=== PATIENT | male | born 1950 | race Caucasian/White ===

== ENCOUNTER 2018-12-30 09:10 | Observation (INO) ==
[2018-12-30] MEDS ORDERED: SODIUM CHLORIDE 0.9% 1000ML 1,000 ML IV ONE (09:35)
[2018-12-30 09:52] LABS: Basophils # (auto) 0.05 K/uL (0-0.2); Basophils % (auto) 0.4 %; Eosinophils # (auto) 0.25 K/uL (0-0.5); Eosinophils % (auto) 2.1 %; Hematocrit (blood only) 40.6 % (42-52); Hemoglobin 13.3 g/dL (14.0-18.0); Immature Granulocytes # (auto) 0.03 K/uL (0.00-0.02); Immature Granulocytes % (auto) 0.3 %; Lymphocytes # (auto) 3.42 K/uL (1.2-3.4); Lymphocytes % (auto) 28.7 %; Mean Corpuscular Hgb Conc 32.8 g/dL (32-36); Mean Corpuscular Volume 87.7 fL (80-100); Mean Platelet Volume 10.6 fL (7.4-10.4); Monocytes % (auto) 7.6 %; Neutrophils # (auto) 7.26 K/uL (1.4-6.5); Neutrophils % (auto) 60.9 %; Platelet Count 323 K/uL (130-400); RDW Coefficient of Variation 13.5 % (11.5-14.5); RDW Standard Deviation 42.9 fL (36.4-46.3); Red Blood Count 4.63 M/uL (4.7-6.1); White Blood Count 11.91 K/uL (4.8-10.8)
[2018-12-30 09:58] LABS: Albumin Level 3.6 gm/dl (3.4-5.0); BUN Creatinine Ratio 15.8 (10-20); Calcium 9.1 mg/dl (8.5-10.1); Creatinine Clr Calc Pharmacy 79.2 ml/min; Est GFR (Non-African American) 69.9; Magnesium 2.1 mg/dl (1.8-2.4); Potassium 3.7 mmol/L (3.5-5.1)
[2018-12-30 10:06] LABS: Bilirubin,Total 0.5 mg/dl (0.2-1); Globulin 3.5 gm/dl (2.5-4.0); Phosphorus 3.4 mg/dl (2.5-4.9); Total Protein 7.1 gm/dl (6.4-8.2); Troponin I 0.046 ng/ml (0-0.045)
--- NOTE | 2018-12-30 10:09 | XRay Report ---
XR chest 1V portable CLINICAL HISTORY: Atypical chest pain COMPARISON STUDY: No previous studies for comparison. FINDINGS: The heart is at the upper limits of normal in size. Mild emphysema is suspected. There is n o overt failure. There is no focal pulmonary consolidation. There is minimal blunting of the left lat eral costophrenic angle a trace effusion cannot be excluded.[ IMPRESSION: 1. Equivocal trace left pleural effusion 2. No evidence of focal pulmonary consolidation. No evidence of failure. Electronically signed by: Juan Dykes M.D. 12/30/2018 10:08 AM
--- NOTE | 2018-12-30 12:54 | History & Physical Report ---
Date of Service December 30, 2018 Assessment & Plan (1) Near syncope: Suspect vagal response related to blood draw since patient has a history of similar symptoms in the past. However, with positive troponin pt will need to be admitted for additional labs and monitoring - Monitor on telemetry - Serial troponins - Repeat EKG prn chest pain - Hold off on repeat ECHO for now - results from Nov reviewed. If troponins trend up, may need to consider repeat ECHO at that time. (2) Elevated troponin: Minimally elevated troponin found upon work-up for near-syncope - unclear if significant - Check troponin Q6 hours x 3 - if progressive elevation and needs cardiac cath, plan to transfer to [place] - Repeat EKG if develops any chest pain (3) Aortic valve stenosis: (4) COPD (chronic obstructive pulmonary disease): Current smoker with no interest in quitting at this time - declines nicotine patch - Continue Symbicort for maintenance, prn Combivent (5) Type 2 diabetes mellitus: Holding oral hypoglycemics and cinnamon bark while admitted, particularly Metformin in anticipation of potential CTA tomorrow - Diabetic heart healthy diet - BSG ACHS - Sliding scale insulin (6) Dyslipidemia: - Continue atorvastatin 40 mg daily (7) HTN (hypertension): - Continue losartan and HCTZ as taken outpatient - pt reports being hypotensive during episode but BP now mildly elevated (8) S/P cataract surgery: s/p left cataract surgery 12/28/18 - Continue drops as prescribed outpatient for post-operative care - No acute visual changes at this time - no need for ophthalmolgoy evaluation unless acute change Patient reviewed with collaborating physician, Dr. Shah. Plan of care discussed and as outlined above. Pt was scheduled to have surveillance CTA tomorrow at [place] - if negative w/u, may be able to discharge in time for now this study. If not able to discharge tomorrow, may consider ordering as inpatient. Family updated at bedside - all questions answered. Almita Turner PA-C History of Present Illness Primary Care Provider: PCP - Lm Moreland This is a 68 y/o male with a past medical history of severe aortic stenosis, type 2 DM, COPD, hypertension, dyslipidemia who presented to the ED today after an episode of near-syncope while having routine labs drawn at the NH. Pt has a history of severe aortic stenosis and is being evaluated for valve replacement. While having routine pre-operative labs drawn today, he reports the tech had difficulty drawing blood at which point he became lightheaded and diaphoretic with "cloudy thinking" but no loss of consciousness. He reports being aware of what was going on around him and able to respond although he chose to simply close his eyes and "try to get it together." In the ED, he is feeling markedly improved, actually back to baseline, but was found to have a minimally positive troponin so referred for admission for additional work-up. The ED did discuss potential transfer to [place], where he is being worked up for surgery, but it was felt that patient could be monitored initially here and transferred only if needed. Pt denies chest pain, palpitations, nausea, vomiting, dyspnea, RAMIREZ or residual lightheadedness. He has had similar episodes with blood draws previously. He is scheduled for a surveillance CTA chest tomorrow due to history of aortic enlargement that family reports must be completed prior to pre-op cardiac cath which is scheduled for January 10 in [place]. Last ECHO in Nov 2018 showed EF 50-55%, severe valvular aortic stenosis with moderate aortic valve thickening, mild AR, trace TR/MR, mildly dilated left atrium. Allergies Allergy/AdvReac Type Severity Reaction Status Date / Time Penicillins Allergy Hives Unverified 12/30/18 10:13 Home Medications Home Medications Medication Instructions Recorded Confirmed Type Combivent Respimat 1 puff INHALATION UD PRN 12/30/18 12/30/18 History Symbicort 1 puff INHALATION UD 12/30/18 12/30/18 History aspirin [Aspirin Childrens] 81 mg PO DAILY 12/30/18 12/30/18 History atorvastatin 40 mg PO DAILY 12/30/18 12/30/18 History cinnamon bark [Cinnamon] 500 mg PO DAILY 12/30/18 12/30/18 History flaxseed oil 1,000 mg PO DAILY 12/30/18 12/30/18 History garlic 1,000 mg PO DAILY 12/30/18 12/30/18 History glipizide 5 mg PO BID 12/30/18 12/30/18 History hydrochlorothiazide 25 mg PO DAILY 12/30/18 12/30/18 History [id number] 1 cap PO DAILY 12/30/18 12/30/18 History [krill oil] losartan 100 mg PO DAILY 12/30/18 12/30/18 History metformin 1,000 mg PO BID 12/30/18 12/30/18 History ofloxacin 1 drp OPL QID 12/30/18 12/30/18 History prednisolone acetate 1 drp OPB QID 12/30/18 12/30/18 History Past Med/Surg History Medical History Aortic valve stenosis (Chronic) Severe - being worked up for valvular replacement December 2018 COPD (chronic obstructive pulmonary disease) (Chronic) Dyslipidemia (Chronic) HTN (hypertension) (Chronic) Type 2 diabetes mellitus (Chronic) Surgical History Hx of cataract surgery (Chronic) Right 12/14/18. Left 12/28/18 Family History Brother Cancer Father Cancer Mother Cancer Diabetes Thyroid condition Uncle Heart disease Social History Preferred Language: Cypriot Beliefs That Will Affect Care: None marital status: Current Living Situation: Spouse current occupational status: retired Other Information That Helps Us Care for You: No Feels Safe at Home: Yes Safety Concerns: Feels Safe At This Time Smoking Status: Current every day smoker Hx Alcohol Use: Yes Hx Substance Use: No Review of Systems All systems reviewed & are unremarkable except as noted in HPI & below Constitutional: no fever, no chills, no sweats, no fatigue and no weakness Eyes: no diplopia and no worsening vision Ear, Nose, Mouth, Throat: no sore throat and no dysphagia Respiratory: no cough, no chest congestion, no dyspnea on exertion and no wheezing Cardiovascular: + lightheadedness (see HPI); no chest pain with activity, no radiating jaw, neck or arm pain, no dyspnea on exertion, no palpitations, no edema and no calf pain Gastrointestinal: no heartburn, no nausea, no vomiting, no diarrhea/loose stools and no blood in stools Genitourinary (Male): no dysuria, no urinary frequency, no decreased urination, no hematuria and no flank pain Musculoskeletal: no back pain and no neck pain Integumentary: no rash and no skin ulcer Neurologic: no localized weakness, no tingling, no numbness, no seizure-like activity and no headache(s) Psychiatric: no depression, no anxiety, no confusion and no hallucinations Physical Exam Vital Signs (Past 24 Hours): Last Vital Signs Temp 36.7 C 12/30/18 09:04 Pulse 71 12/30/18 12:28 Resp 23 12/30/18 12:28 BP 139/74 12/30/18 12:28 Pulse Ox 95 12/30/18 12:28 Constitutional: WD/WN, vitals as above Eyes: PERRL, conjunctivae normal, anicteric sclerae EOM intact bilaterally ENMT: external ear and nose normal, oropharynx normal Neck: trachea midline Respiratory: normal respiratory effort, lungs clear to auscultation Auscultation: no rales, no rhonchi and no wheezes Cardiovascular: Rate/Rhythm: regular rate and regular rhythm Heart Sounds: + murmur (III/ systolic murmur heard best at RUSB with radiation to right carotid) Vessels: no JVD Extremities: normal capillary refill; no calf tenderness and no pedal edema Gastrointestinal (Abdomen): Inspection/Auscultation: normal bowel sounds; abdomen not distended Percussion/Palpation: abdomen soft; abdomen nontender and no guarding Musculoskeletal: Extremities: extremities normal to inspection; no cyanosis Skin: no rashes, warm and dry normal turgor Neurologic: moves all extremities; no focal motor deficits and not confused Cranial Nerves: EOM intact bilaterally, tongue midline and able to rotate head bilaterally Psychiatric: A+Ox3, euthymic affect Results & Data Laboratory Results Laboratory Results - last 24 hr 12/30/18 12/30/18 08:56 08:56 WBC 11.91 H RBC 4.63 L Hgb 13.3 L Hct 40.6 L MCV 87.7 MCH 28.7 MCHC 32.8 RDW Std Deviation 42.9 RDW Coeff of Keven 13.5 Plt Count 323 MPV 10.6 H Immature Gran % (Auto) 0.3 Neut % (Auto) 60.9 Lymph % (Auto) 28.7 Sweet [place] % (Auto) 7.6 Eos % (Auto) 2.1 Baso % (Auto) 0.4 Immature Gran # (Auto) 0.03 H Neut # (Auto) 7.26 H Lymph # (Auto) 3.42 H Sweet Grass # (Auto) 0.90 H Eos # (Auto) 0.25 Baso # (Auto) 0.05 Sodium 139 Potassium 3.7 Chloride 105 Carbon Dioxide 29 Anion Gap 5.0 BUN 17 Creatinine 1.09 Est Cr Clr Drug Dosing 79.2 Est GFR ( Amer) 81.0 Est GFR (Non-Af Amer) 69.9 BUN/Creatinine Ratio 15.8 Glucose 123 H Calcium 9.1 Phosphorus 3.4 Magnesium 2.1 Total Bilirubin 0.5 AST 24 ALT 39 Alkaline Phosphatase 55 Troponin I 0.046 H* Total Protein 7.1 Albumin 3.6 Globulin 3.5 Albumin/Globulin Ratio 1.0 Lipase 220 Diagnostic Findings Chest X-ray 12/30/18 - IMPRESSION: 1. Equivocal trace left pleural effusion 2. No evidence of focal pulmonary consolidation. No evidence of failure. Medications Administered Discontinued Medications Sodium Chloride (Nss 1000ml) 1,000 mls @ 999 mls/hr IV .Q1H1M ONE Stop: 12/30/18 10:35 Last Infusion: 12/30/18 11:23 Dose: 0 mls/hr Documented by: [id number] Admin: 12/30/18 10:29 Dose: 999 mls/hr Documented by: [id number] Supervising Physician Co-Signing Physician Notes Pt was seen and examined. Agreed with Kim DEGROOT exam, assessment and plan. 68 y/o male with a past medical history of severe aortic stenosis, type 2 DM, COPD, hypertension, dyslipidemia who presented to the ED today after an episode of near-syncope while having routine labs drawn at the NH. Pt said that he had multiple episodes in the past related to blood draw or by seeing blood. Currently he denies any chest pain, palpitation, dizziness and SOB. Exam General- No acute distress Head- atraumatic Eyes- PERRL, EOMI, ENT- oropharynx clear Neck- supple, no JVD Lungs- clear to auscultation Heart- regular rhythm; +systolic murmur Abdomen- normal bowel sounds, soft, nontender Extremities- no calf tenderness Neuro- alert, oriented x 3; PERRL, EOMI; no facial palsy; no dysarthria Skin- warm & dry A/P Near syncope Elevated Troponin Present on admission for near syncope during blood draw Mostly vaso vagal response related to blood draw Multiple episodes in the past related to blood draw or by seeing blood Will trend troponin level EKG showed no ischemic changes Denies any cardiac symptoms Continue aspirin for now Echo done on 11/22 showed no wall motion abnormality with EF 50-55% If trop peak, will consider to repeat echo Monitor in tele Please refer to Kim DEGROOT documentation for other problems MD Alyssa (1) Type 2 diabetes mellitus Diabetes mellitus intermediate project manager insulin use: without intermediate project manager use (2) Aortic valve stenosis Cardiac valve disease etiology: nonrheumatic Qualified Code(s): I35.0 - Nonrheumatic aortic (valve) stenosis (3) S/P cataract surgery Laterality: left Qualified Code(s): Z98.42 - Cataract extraction status, left eye (4) COPD (chronic obstructive pulmonary disease) COPD type: unspecified COPD Qualified Code(s): J44.9 - Chronic obstructive pulmonary disease, unspecified (5) HTN (hypertension) Hypertension type: essential hypertension Qualified Code(s): I10 - Essential (primary) hypertension
[2018-12-30] MEDS ORDERED: GLUCOSE 40% GEL 15 GM TUBE PO PRN (16:25)
[2018-12-30] MEDS ORDERED: CARBOHYDRATES FOR HYPOGLYCEMIA PO PRN (16:25)
[2018-12-30] MEDS ORDERED: GLUCOSE 10 TABS/TUBE PO PRN (16:25)
[2018-12-30] MEDS ORDERED: DEXTROSE 50% 50 ML SYRINGE IV PRN (16:25)
[2018-12-30] MEDS ORDERED: IPRATROPIUM BROMIDE/ALBUTEROL respimat INH INH PRN (16:25)
[2018-12-30] MEDS ORDERED: GLUCAGON FOR INJ 1 MG VIAL SQ PRN (16:25)
[2018-12-30] MEDS: INSULIN ASPART 100 UNITS/ML 3 ML PEN SC SCH ×2 (17:57→20:43)
[2018-12-30] MEDS: OFLOXACIN 0.3% OP SOLN 5 ML BTL OPL SCH ×2 (17:59→20:59)
[2018-12-30] MEDS: prednisoLONE acetate 1% OP SUSP 5 ML BTL OPB SCH ×2 (17:59→20:59)
[2018-12-30] MEDS ORDERED: Nursing to Pharmacy Communication ONE (21:53)
--- NOTE | 2018-12-30 22:20 | Emergency Department Note ---
Entered by Zoe Greer acting as a scribe for History of Present Illness General Chief complaint: Syncope Stated complaint: syncope Time Seen by Provider: 12/30/18 09:34 Source: patient History of Present Illness Onset (ago): minute(s) (prior to arrival) Location: head Pain Consistency: + other (episode) Quality: + other (syncope) Associated symptoms: + denies other symptoms (congestion); no chest pain, no cough, no fever/chills and no shortness of breath The patient is a 68 year old male who presents to the Emergency Room with complaints of an episode of near syncope occurring prior to arrival. The patient states that he was fasting for blood work this morning. He states that he had only taken his medications this morning. He reports that when he was starting to give blood, he started to feel like he was going to pass out. He notes that this was scheduled blood work. The patient denies cough, congestion, fever, chills, chest pain, and shortness of breath. He notes that he takes an Aspirin daily and smokes just less than a pack of cigarettes a day. Home Medications Home Medications Medication Instructions Recorded Confirmed Type aspirin [Aspirin Childrens] 81 mg PO DAILY 12/30/18 12/30/18 History atorvastatin 40 mg PO DAILY 12/30/18 12/30/18 History budesonide-formoterol [Symbicort] 1 puff INHALATION UD 12/30/18 12/30/18 History cinnamon bark [Cinnamon] 500 mg PO DAILY 12/30/18 12/30/18 History flaxseed oil 1,000 mg PO DAILY 12/30/18 12/30/18 History garlic 1,000 mg PO DAILY 12/30/18 12/30/18 History glipizide 5 mg PO BID 12/30/18 12/30/18 History hydrochlorothiazide 25 mg PO DAILY 12/30/18 12/30/18 History ipratropium-albuterol [Combivent 1 puff INHALATION UD PRN 12/30/18 12/30/18 History Respimat] [id number] 1 cap PO DAILY 12/30/18 12/30/18 History [krill oil] losartan 100 mg PO DAILY 12/30/18 12/30/18 History metformin 1,000 mg PO BID 12/30/18 12/30/18 History ofloxacin 1 drp OPL QID 12/30/18 12/30/18 History prednisolone acetate 1 drp OPB QID 12/30/18 12/30/18 History Allergies Allergy/AdvReac Type Severity Reaction Status Date / Time Penicillins Allergy Hives Unverified 12/30/18 10:13 Past Med/Surg History Medical History Aortic valve stenosis (Chronic) Severe - being worked up for valvular replacement December 2018 COPD (chronic obstructive pulmonary disease) (Chronic) Dyslipidemia (Chronic) HTN (hypertension) (Chronic) Type 2 diabetes mellitus (Chronic) Surgical History Hx of cataract surgery (Chronic) Right 12/14/18. 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 and A total of 10 systems reviewed and were otherwise negative Physical Exam Vital Signs Vital Signs - 24 hr 12/30/18 09:04 12/30/18 09:32 12/30/18 10:00 Temperature 36.7 C Temperature Source Oral Sepsis Recent Fever Within 48 Hours No Sepsis New/Unexplained Change in Mental Status No Sepsis Action Taken by Nursing No Action Required Pulse Rate 72 Pulse Rate [Left Finger] Pulse Rate from SpO2 Sensor 80 Pulse Rhythm [Left Finger] Pulse Strength [Left Finger] Respiratory Rate 20 19 Respiratory Effort / Characteristics Respiratory Depth Normal Respiratory Pattern Blood Pressure 132/77 117/74 Blood Pressure [Left Arm] Blood Pressure [Right Arm] Blood Pressure Mean 95 88 Blood Pressure Mean [Left Arm] Blood Pressure Mean [Right Arm] Blood Pressure Position [Left Arm] Blood Pressure Position [Right Arm] Pulse Oximetry 96 95 94 Oxygen Delivery Method Room Air Room Air 12/30/18 11:24 12/30/18 12:28 12/30/18 13:00 Temperature Temperature Source Sepsis Recent Fever Within 48 Hours Sepsis New/Unexplained Change in Mental Status Sepsis Action Taken by Nursing Pulse Rate Pulse Rate [Left Finger] 71 71 72 Pulse Rate from SpO2 Sensor Pulse Rhythm [Left Finger] Regular Pulse Strength [Left Finger] Respiratory Rate 20 23 18 Respiratory Effort / Characteristics Non-Labored Non-Labored Respiratory Depth Normal Normal Respiratory Pattern Regular Regular Blood Pressure Blood Pressure [Left Arm] 129/77 139/74 110/79 Blood Pressure [Right Arm] Blood Pressure Mean Blood Pressure Mean [Left Arm] 94 95 89 Blood Pressure Mean [Right Arm] Blood Pressure Position [Left Arm] Blood Pressure Position [Right Arm] Pulse Oximetry 95 95 95 Oxygen Delivery Method Room Air Room Air Room Air 12/30/18 14:00 12/30/18 15:30 12/30/18 15:48 Temperature Temperature Source Sepsis Recent Fever Within 48 Hours Sepsis New/Unexplained Change in Mental Status Sepsis Action Taken by Nursing Pulse Rate 72 Pulse Rate [Left Finger] 76 76 Pulse Rate from SpO2 Sensor Pulse Rhythm [Left Finger] Pulse Strength [Left Finger] Respiratory Rate 25 H 15 15 Respiratory Effort / Characteristics Non-Labored Non-Labored Respiratory Depth Normal Normal Respiratory Pattern Regular Regular Blood Pressure Blood Pressure [Left Arm] 142/78 H 145/88 H Blood Pressure [Right Arm] Blood Pressure Mean Blood Pressure Mean [Left Arm] 99 107 Blood Pressure Mean [Right Arm] Blood Pressure Position [Left Arm] Blood Pressure Position [Right Arm] Pulse Oximetry 95 95 95 Oxygen Delivery Method Room Air Room Air Room Air 12/30/18 16:00 12/30/18 16:46 12/30/18 19:01 Temperature 36.7 C 36.8 C Temperature Source Oral Oral Sepsis Recent Fever Within 48 Hours Sepsis New/Unexplained Change in Mental Status Sepsis Action Taken by Nursing Pulse Rate Pulse Rate [Left Finger] 81 80 83 Pulse Rate from SpO2 Sensor Pulse Rhythm [Left Finger] Regular Pulse Strength [Left Finger] Normal Respiratory Rate 18 20 Respiratory Effort / Characteristics Non-Labored Spontaneous Non-Labored Respiratory Depth Normal Normal Respiratory Pattern Regular Regular Blood Pressure Blood Pressure [Left Arm] 173/106 H 149/82 H Blood Pressure [Right Arm] 164/85 H Blood Pressure Mean Blood Pressure Mean [Left Arm] 128 104 Blood Pressure Mean [Right Arm] 111 Blood Pressure Position [Left Arm] Sitting Lying Blood Pressure Position [Right Arm] Sitting Pulse Oximetry 92 93 Oxygen Delivery Method Room Air Room Air GENERAL: Awake, alert, fatigued-appearing, in no distress HENT: Normocephalic, atraumatic. Oropharynx with dry mucous membranes and otherwise unremarkable. EYES: Normal conjunctiva. Sclera non-icteric. EOMI. No nystamgus. PEARRL. NECK: Supple. No nuchal rigidity. FROM. No JVD. RESPIRATORY: Scant intermittent wheezes otherwise CTAB. CARDIAC: Regular rate, normal rhythm. 2/6 systolic murmur. Extremities warm and well perfused. Pulses equal. ABDOMEN: Soft, non-distended. No tenderness to palpation. No rebound or guarding. No masses. RECTAL: Deferred. MUSCULOSKELETAL: Chest examination reveals no tenderness. The back is symmetrical on inspection without obvious abnormality. There is no CVA tenderness to palpation. No joint edema. LOWER EXTREMITIES: Calves are equal size bilaterally and non-tender. No edema. No discoloration. NEURO: Normal sensorium. No sensory or motor deficits noted. Normal cerebellar function including finger to nose, alternating palms, and heel to diaz. 5/5 strength and SILT x 4 extremities. SKIN: No rash or jaundice noted. Course 0948: Past medical records reviewed. The patient was evaluated in room C5, and a complete history and physical examination were performed. 1125: I reevaluated the patient and updated him on his test results thus far. He made note that he is supposed to go to the [facility] in [place] if he is going to stay overnight. 1141: [facility] He said the patient was getting a CT scan tomorrow at [place] to assess his aorta. He has a history of aortic enlargement. His heart catheterization is scheduled for January 10. 1151: [facility] will evaluate the patient for further management. 1157: I reevaluated the patient and updated him and his family on his test results. I discussed the treatment plan with them. They verbally agree and understand. Consultations Consultation #1: [facility] He said the patient was getting a CT scan tomorrow at [place] to assess his aorta. He has a history of aortic enlargement. His heart catheterization is scheduled for January 10. Time: 11:41 Consultation #2: I reviewed the patient's case with Kim Turner PA-C - [facility] Hospitalist. She will evaluate the patient for further management. Time: 11:51 Administered Medications Insulin Aspart (Novolog Flexpen) 0 units SC ACHS [facility] Stop: 01/29/19 16:29 Last Admin: 12/30/18 20:43 Dose: Not Given Documented by: [id number] Cosigned by: [id number] Admin: 12/30/18 17:57 Dose: 5 units Documented by: [id number] Cosigned by: [id number] Ofloxacin (Ocuflox 0.3%) 1 drops OPL QID [facility] Stop: 01/09/19 16:59 Last Admin: 12/30/18 20:59 Dose: 1 drops Documented by: [id number] Admin: 12/30/18 17:59 Dose: 1 drops Documented by: [id number] Prednisolone Acetate (Pred Forte 1%) 1 drops OPB QID [facility] Stop: 01/29/19 16:59 Last Admin: 12/30/18 20:59 Dose: 1 drops Documented by: [id number] Admin: 12/30/18 17:59 Dose: 1 drops Documented by: [id number] Discontinued Medications Sodium Chloride (Nss 1000ml) 1,000 mls @ 999 mls/hr IV .Q1H1M ONE Stop: 12/30/18 10:35 Last Infusion: 12/30/18 11:23 Dose: 0 mls/hr Documented by: [id number] Admin: 12/30/18 10:29 Dose: 999 mls/hr Documented by: [id number] Medical Decision Making Differential Diagnosis Differential diagnosis: Etiologies such as vasovagal event, infection, anemia, hypoglycemia, hypovolemia, electrolyte abnormalities, dysrhythmias, cardiac ischemia, cardiac tamponade, valvular heart disease, structural heart disease, seizure, vascular stenosis/dissection, pulmonary embolism, intracerebral event, toxicological process, neurologic event, as well as others were entertained. Medical Records Attestation: I reviewed the patient's medical records. Home Medications Current Medication List: was personally reviewed by me Laboratory Data Attestation: I reviewed the patient's lab results. Result diagrams: 12/30/18 08:56 12/30/18 08:56 Lab Results 12/30/18 12/30/18 12/30/18 Range/Units 08:56 08:56 16:31 WBC 11.91 H (4.8-10.8) K/uL RBC 4.63 L (4.7-6.1) M/uL Hgb 13.3 L (14.0-18.0) g/dL Hct 40.6 L (42-52) % MCV 87.7 (80-100) fL MCH 28.7 (25-34) pg MCHC 32.8 (32-36) g/dL RDW Std Deviation 42.9 (36.4-46.3) fL RDW Coeff of Keven 13.5 (11.5-14.5) % Plt Count 323 (130-400) K/uL MPV 10.6 H (7.4-10.4) fL Immature Gran % (Auto) 0.3 % Neut % (Auto) 60.9 % Lymph % (Auto) 28.7 % Love % (Auto) 7.6 % Eos % (Auto) 2.1 % Baso % (Auto) 0.4 % Immature Gran # (Auto) 0.03 H (0.00-0.02) K/uL Neut # (Auto) 7.26 H (1.4-6.5) K/uL Lymph # (Auto) 3.42 H (1.2-3.4) K/uL Love # (Auto) 0.90 H (0.11-0.59) K/uL Eos # (Auto) 0.25 (0-0.5) K/uL Baso # (Auto) 0.05 (0-0.2) K/uL Sodium 139 (136-145) mmol/L Potassium 3.7 (3.5-5.1) mmol/L Chloride 105 (98-107) mmol/L Carbon Dioxide 29 (21-32) mmol/L Anion Gap 5.0 (3-11) BUN 17 (7-18) mg/dl Creatinine 1.09 (0.6-1.4) mg/dl Est Cr Clr Drug Dosing 79.2 ml/min Est GFR ( Amer) 81.0 Est GFR (Non-Af Amer) 69.9 BUN/Creatinine Ratio 15.8 (10-20) Glucose 123 H (70-99) mg/dl POC Glucose 126 H (70-99) Calcium 9.1 (8.5-10.1) mg/dl Phosphorus 3.4 (2.5-4.9) mg/dl Magnesium 2.1 (1.8-2.4) mg/dl Total Bilirubin 0.5 (0.2-1) mg/dl AST 24 (15-37) U/L ALT 39 (12-78) U/L Alkaline Phosphatase 55 (45-117) U/L Troponin I 0.046 H* (0-0.045) ng/ml Total Protein 7.1 (6.4-8.2) gm/dl Albumin 3.6 (3.4-5.0) gm/dl Globulin 3.5 (2.5-4.0) gm/dl Albumin/Globulin Ratio 1.0 (0.9-2) Lipase 220 (73-393) U/L 12/30/18 12/30/18 Range/Units 17:03 20:05 WBC (4.8-10.8) K/uL RBC (4.7-6.1) M/uL Hgb (14.0-18.0) g/dL Hct (42-52) % MCV (80-100) fL MCH (25-34) pg MCHC (32-36) g/dL RDW Std Deviation (36.4-46.3) fL RDW Coeff of Keven (11.5-14.5) % Plt Count (130-400) K/uL MPV (7.4-10.4) fL Immature Gran % (Auto) % Neut % (Auto) % Lymph % (Auto) % Love % (Auto) % Eos % (Auto) % Baso % (Auto) % Immature Gran # (Auto) (0.00-0.02) K/uL Neut # (Auto) (1.4-6.5) K/uL Lymph # (Auto) (1.2-3.4) K/uL Love # (Auto) (0.11-0.59) K/uL Eos # (Auto) (0-0.5) K/uL Baso # (Auto) (0-0.2) K/uL Sodium (136-145) mmol/L Potassium (3.5-5.1) mmol/L Chloride (98-107) mmol/L Carbon Dioxide (21-32) mmol/L Anion Gap (3-11) BUN (7-18) mg/dl Creatinine (0.6-1.4) mg/dl Est Cr Clr Drug Dosing ml/min Est GFR ( Amer) Est GFR (Non-Af Amer) BUN/Creatinine Ratio (10-20) Glucose (70-99) mg/dl POC Glucose 122 H (70-99) Calcium (8.5-10.1) mg/dl Phosphorus (2.5-4.9) mg/dl Magnesium (1.8-2.4) mg/dl Total Bilirubin (0.2-1) mg/dl AST (15-37) U/L ALT (12-78) U/L Alkaline Phosphatase (45-117) U/L Troponin I 0.046 H* (0-0.045) ng/ml Total Protein (6.4-8.2) gm/dl Albumin (3.4-5.0) gm/dl Globulin (2.5-4.0) gm/dl Albumin/Globulin Ratio (0.9-2) Lipase (73-393) U/L Imaging Data Radiologist's Impression: Radiology results as stated below per my review and the radiologist's interpretation: XR chest 1V portable CLINICAL HISTORY: Atypical chest pain COMPARISON STUDY: No previous studies for comparison. FINDINGS: The heart is at the upper limits of normal in size. Mild emphysema is suspected. There is no overt failure. There is no focal pulmonary consolidation. There is minimal blunting of the left lateral costophrenic angle a trace effusion cannot be excluded.[ IMPRESSION: 1. Equivocal trace left pleural effusion 2. No evidence of focal pulmonary consolidation. No evidence of failure. Electronically signed by: Juan Dykes M.D. 12/30/2018 10:08 AM ECG Data Attestation: I personally reviewed and interpreted this ECG as follows: Indication: syncope Rate (beats per minute): 71 Rhythm: normal sinus Findings: + other (normal axis, inferior and lateral ST and T wave ab normalities) Comparison ECG Date: no prior available Blood Pressure Blood Pressure Findings: Normal blood pressure Blood Pressure Disposition: did not require urgent referral MDM Narrative The patient is a pleasant 68 y/o gentleman with a pmhx of aortic stenosis who presents to the emergency department with near syncopal epsiode when having outpatient lab work obtained per HPI. Patient reprots he has a history of getting lightheaded with blood draws. He also reports fasting since last night in preparation for his blood work. On arrival the patient is in NAD, AFVSS. Patient appears clinically dry. He is neuro intact. EOMI. No nystamgus. PEARRL. 5/5 strength and SILT x 4 extremities. Cerebellar function intact including [id number]-[id number], alternating palms, ndmp-af-[id number]. 2/6 systolic murmur. EKG demonstrates inferior-lateral TWI, and QRS of 100, which appears similar to EKG from [place] from 12/20/2018. CXR negative for acute process. WBC 11.9, nonspecific. H/H 13.3/40.6 without prior values for comarision. Chemistry without acidosis. Electrolytes unremarkable. Initial troponin 0.046, without prior values for comparison. Given the patient's syncope in the setting of his troponin elevation, albeit mild, reasonable to admit patient for further evaluation. Of note, patient's ask that I discuss with the patient's [facility] physician to make sure they did not want him transferred since he had a scheduled CT in [place] tomorrow and heart catheterization on January 10 in preparation for possible AVR. Case was d[facility]w at the [facility] in [place] and he explains patient's CT tomorrow was annual surveillance for a history of "aortic enlargement" and confirms that his heart catheterization is scheduled in [place] for January 10 as pre-op evaluation prior to AVR. Thus, agrees that it is reasonable to keep patient at [facility] for evaluation and if concerning findings are identiified than transfer could be considered at that point. Of note, he could not find any prior troponin values for comparison. Patient and family agreeable with admission here. Case d/w Kim Turner, [facility], who will evaluate the patient for admission. Impression & Plan Near syncope, Elevated troponin, Dehydration Discharge Plan Visit Data *Final* Discharge Date/Time: 12/30/18 15:48 Chief Complaint: Syncope Stated Complaint: syncope ED Provider: Renaldo Guaman Discharge Problem: Near syncope, Elevated troponin, Dehydration Patient Disposition: Admitted As Inpatient Discharge Instructions Interventions: ED Discharge Assessment Last Done: 12/30/18 15:48 The scribe's documentation has been prepared under my direction and personally reviewed by me in its entirety. I confirm that the note above accurately reflects all work, treatment, procedures, and medical decision making performed by me.
[2018-12-30] MEDS: BUDESONIDE/FORMOTEROL FUMARATE 160/4.5 60 PUFFS/INHALER INH SCH (23:42)
[2018-12-31 08:27] LABS: BUN Creatinine Ratio 16.8 (10-20); Calcium 8.8 mg/dl (8.5-10.1); Creatinine Clr Calc Pharmacy 94.3 ml/min; Est GFR (African American) 102.5; Est GFR (Non-African American) 88.5; Potassium 3.7 mmol/L (3.5-5.1); Troponin I 0.047 ng/ml (0-0.045)
[2018-12-31] MEDS ORDERED: ASPIRIN 81 MG ECTAB PO SCH (09:00)
[2018-12-31] MEDS ORDERED: LOSARTAN POTASSIUM 50 MG TAB PO SCH (09:00)
[2018-12-31] MEDS ORDERED: hydroCHLOROthiazide 25 MG TAB PO SCH (09:00)
[2018-12-31] MEDS ORDERED: ATORVASTATIN 40 MG TAB PO SCH (09:00)
[2018-12-31] MEDS: INSULIN ASPART 100 UNITS/ML 3 ML PEN SC SCH (10:12)
[2018-12-31] MEDS: OFLOXACIN 0.3% OP SOLN 5 ML BTL OPL SCH (10:17)
[2018-12-31] MEDS: prednisoLONE acetate 1% OP SUSP 5 ML BTL OPB SCH (10:17)
[2018-12-31] MEDS: BUDESONIDE/FORMOTEROL FUMARATE 160/4.5 60 PUFFS/INHALER INH SCH (10:18)
--- NOTE | 2018-12-31 10:35 | Hospitalist Progress Note ---
Date of Service December 31, 2018 Assessment & Plan (1) Near syncope: Present on admission for near syncope during blood draw Mostly vaso vagal response related to blood draw Multiple episodes in the past related to blood draw or by seeing blood Troponin was very mildly elevated, trending down now Tele monitor showed no arrhythmia Denies any cardiac symptoms Echo done on 11/22 showed no wall motion abnormality with EF 50-55% Clinically stable (2) Elevated troponin: Troponin on admission 0.046-->0.052--->0.046 No ischemic changes on EKG Denies any chest pain Continue aspirin, statin Stable (3) Aortic valve stenosis: Plan to have valve surgery Schedule for cardiac cath on 01/10 (4) COPD (chronic obstructive pulmonary disease): Counselling on smoking cessation Continue Symbicort for maintenance, prn Combivent (5) Type 2 diabetes mellitus: Holding oral hypoglycemics and cinnamon bark while admitted, particularly Metformin in anticipation of potential CTA tomorrow Diabetic heart healthy diet Sliding scale insulin during hospital course (6) Dyslipidemia: Continue atorvastatin 40 mg daily (7) HTN (hypertension): Continue losartan and HCTZ as taken outpatient Monitor BP (8) S/P cataract surgery: s/p left cataract surgery 12/28/18 Continue drops as prescribed outpatient for post-operative care No acute visual changes at this time - no need for ophthalmolgoy evaluation unle ss acute change DVT px on SCDs/Pt ambulates CODE STATUS FULL CODE Disposition Discharge home today Subjective Pt was seen and examined Sitting in chair with no distress with son and at bedside Pt said that he feels fine said that pt passed out so many times in the past during blood draw said that she had syncope just seeing the blood (passed out during had blood drawn done) He would like to be discharged today to go get the CT chest schedule outpatient. He denies any chest pain, palpitation, dizziness and SOB Physical Exam Vital Signs (Past 24 Hours): Last Vital Signs Temp 36.3 C L 12/31/18 07:03 Pulse 77 12/31/18 07:03 Resp 18 12/31/18 07:03 BP 153/87 H 12/31/18 07:03 Pulse Ox 95 12/31/18 07:03 Physical Exam: General- No acute distress Head- atraumatic Eyes- PERRL, EOMI, ENT- oropharynx clear Neck- supple, no JVD Lungs- clear to auscultation Heart- regular rhythm; +systolic murmur Abdomen- normal bowel sounds, soft, nontender Extremities- no calf tenderness Neuro- alert, oriented x 3; PERRL, EOMI; no facial palsy; no dysarthria Skin- warm & dry (1) Type 2 diabetes mellitus Diabetes mellitus senior living insulin use: without manager intermediate use (2) Aortic valve stenosis Cardiac valve disease etiology: nonrheumatic Qualified Code(s): I35.0 - Nonrheumatic aortic (valve) stenosis (3) S/P cataract surgery Laterality: left Qualified Code(s): Z98.42 - Cataract extraction status, left eye (4) COPD (chronic obstructive pulmonary disease) COPD type: unspecified COPD Qualified Code(s): J44.9 - Chronic obstructive pulmonary disease, unspecified (5) HTN (hypertension) Hypertension type: essential hypertension Qualified Code(s): I10 - Essential (primary) hypertension
--- NOTE | 2019-01-01 08:18 | Discharge Summary ---
Date of Service December 31, 2018 Admission HPI Per Admitting Provider This is a 68 y/o male with a past medical history of severe aortic stenosis, type 2 DM, COPD, hypertension, dyslipidemia who presented to the ED today after an episode of near-syncope while having routine labs drawn at the OR. Pt has a history of severe aortic stenosis and is being evaluated for valve replacement. While having routine pre-operative labs drawn today, he reports the tech had difficulty drawing blood at which point he became lightheaded and diaphoretic with "cloudy thinking" but no loss of consciousness. He reports being aware of what was going on around him and able to respond although he chose to simply close his eyes and "try to get it together." In the ED, he is feeling markedly improved, actually back to baseline, but was found to have a minimally positive troponin so referred for admission for additional work-up. The ED did discuss potential transfer to [place], where he is being worked up for surgery, but it was felt that patient could be monitored initially here and transferred only if needed. Pt denies chest pain, palpitations, nausea, vomiting, dyspnea, RAMIREZ or residual lightheadedness. He has had similar episodes with blood draws previously. He is scheduled for a surveillance CTA chest tomorrow due to history of aortic enlargement that family reports must be completed prior to pre-op cardiac cath which is scheduled for January 10 in [place]. Last ECHO in Nov 2018 showed EF 50-55%, severe valvular aortic stenosis with moderate aortic valve thickening, mild AR, trace TR/MR, mildly dilated left atrium. Admission Exam Per Admitting Provider Constitutional: WD/WN, vitals as above Eyes: PERRL, conjunctivae normal, anicteric sclerae EOM intact bilaterally ENMT: external ear and nose normal, oropharynx normal Neck: trachea midline Respiratory: normal respiratory effort, lungs clear to auscultation Auscultation: no rales, no rhonchi and no wheezes Cardiovascular: Rate/Rhythm: regular rate and regular rhythm Heart Sounds: + murmur (III/ systolic murmur heard best at RUSB with radiation to right carotid) Vessels: no JVD Extremities: normal capillary refill; no calf tenderness and no pedal edema Gastrointestinal Inspection/Auscultation: normal bowel sounds; abdomen not distended Percussion/Palpation: abdomen soft; abdomen nontender and no guarding Musculoskeletal: Extremities: extremities normal to inspection; no cyanosis Skin: no rashes, warm and dry normal turgor Neurologic: moves all extremities; no focal motor deficits and not confused Cranial Nerves: EOM intact bilaterally, tongue midline and able to rotate head bilaterally Psychiatric: A+Ox3, euthymic affect Principal Diagnosis Near Syncope Elevated troponin Hypertension DM type 2 Aortic Valve Stenosis COPD Dyslipidemia Discharge Exam General- No acute distress Head- atraumatic Eyes- PERRL, EOMI, ENT- oropharynx clear Neck- supple, no JVD Lungs- clear to auscultation Heart- regular rhythm; +systolic murmur Abdomen- normal bowel sounds, soft, nontender Extremities- no calf tenderness Neuro- alert, oriented x 3; PERRL, EOMI; no facial palsy; no dysarthria Skin- warm & dry Discharge Data Allergies Allergy/AdvReac Type Severity Reaction Status Date / Time Penicillins Allergy Hives Unverified 12/30/18 10:13 Consultations 12/30/18 12:03 ED Decision to Admit Stat Ordered Studies XR chest 1V portable CLINICAL HISTORY: Atypical chest pain COMPARISON STUDY: No previous studies for comparison. FINDINGS: The heart is at the upper limits of normal in size. Mild emphysema is suspected. There is no overt failure. There is no focal pulmonary consolidation. There is minimal blunting of the left lateral costophrenic angle a trace effusion cannot be excluded.[ IMPRESSION: 1. Equivocal trace left pleural effusion 2. No evidence of focal pulmonary consolidation. No evidence of failure. Electronically signed by: Juan Dykes M.D. 12/30/2018 10:08 AM Dictated: 12/30/18 1006 Transcribed: 12/30/18 1006 Hospital Course (1) Near syncope: Present on admission for near syncope during blood draw Mostly vaso vagal response related to blood draw Multiple episodes in the past related to blood draw or by seeing blood Troponin was very mildly elevated, trending down now Tele monitor showed no arrhythmia Denies any cardiac symptoms Echo done on 11/22 showed no wall motion abnormality with EF 50-55% Clinically stable (2) Elevated troponin: Troponin on admission 0.046-->0.052--->0.046 No ischemic changes on EKG Denies any chest pain Continue aspirin, statin Stable (3) Aortic valve stenosis: Plan to have valve surgery Schedule for cardiac cath on 01/10 (4) COPD (chronic obstructive pulmonary disease): Counselling on smoking cessation Continue Symbicort for maintenance, prn Combivent (5) Type 2 diabetes mellitus: Holding oral hypoglycemics and cinnamon bark while admitted, particularly Metformin in anticipation of potential CTA tomorrow Diabetic heart healthy diet Sliding scale insulin during hospital course (6) Dyslipidemia: Continue atorvastatin 40 mg daily (7) HTN (hypertension): Continue losartan and HCTZ as taken outpatient Monitor BP (8) S/P cataract surgery: s/p left cataract surgery 12/28/18 Continue drops as prescribed outpatient for post-operative care No acute visual changes at this time - no need for ophthalmolgoy evaluation unless acute change DVT px on SCDs/Pt ambulates CODE STATUS FULL CODE Disposition Discharge home today Total Time Total Time Spent Total Time Spent (In Minutes): 35 minutes Total Time Includes: Examination of the Patient, Discharge Planning, Medication Reconciliation, Communication With Other Providers and Other Discharge Plan Discharge Items Patient Disposition: Home - Self-Care Reason For Visit: NEAR SYNCOPE Discharge Diagnosis: Near Syncope Elevated troponin Hypertension DM type 2 Discharge Goals: Decrease discomfort, Improve disease control, Improve function and Increase independence Activity: Resume your previous activity Activity Comment: As tolerated Non-emergency contact: Primary Care Provider Call non-emergency contact if: you have any medication questions Follow-up/Referrals: Lm Moreland [Primary Care Provider] - Diet: Carb Consistent or DM2 Addtl Provider Instructions: Please call your primary care provider to schedule a follow up appointment in 1 week Increase your activity gradually Seek medical attention if your symptoms reoccur or you develop any chest pain Fall precaution Prescriptions: Continued metformin 500 mg tablet 1,000 mg PO BID RF: 0 atorvastatin 80 mg tablet 40 mg PO DAILY RF: 0 ofloxacin 0.3 % drops 1 drp OPL QID RF: 0 garlic 1,000 mg capsule 1,000 mg PO DAILY RF: 0 flaxseed oil 1,000 mg capsule 1,000 mg PO DAILY RF: 0 prednisolone acetate 1 % drops,suspension 1 drp OPB QID RF: 0 aspirin [Aspirin Childrens] 81 mg tablet,chewable 81 mg PO DAILY RF: 0 hydrochlorothiazide 25 mg tablet 25 mg PO DAILY RF: 0 losartan 100 mg tablet 100 mg PO DAILY RF: 0 glipizide 5 mg tablet 5 mg PO BID RF: 0 cinnamon bark [Cinnamon] 500 mg capsule 500 mg PO DAILY RF: 0 Symbicort 160-4.5 mcg/actuation HFA aerosol inhaler 1 puff Inhalation UD RF: 0 [id number] [krill oil] 818-11-06-50 mg capsule 1 cap PO DAILY RF: 0 Combivent Respimat 20-100 mcg/actuation mist 1 puff Inhalation UD PRN (Reason: Shortness Of Breath) RF: 0 Stand-Alone Forms: [facility] Discharge Orders: Discharge Order (Routine); Ordered 12/31/18 Ordered By: Anusha Shah Admission Data Admit Date/Time: 12/30/18 12:49 Attending Provider: Anusha Shah Admit Provider: Anusha Shah Primary Care Provider: Lm Moreland Other Providers: Anusha Shah Service: Telemetry Medical Other Interventions: Discharge Summary Assessment (RN) Last Done: 12/31/18 11:02 DC Date/Time DO NOT enter until pt leaves facility: 12/31/18 12:47
== END 2018-12-31 12:47 | disposition home or self-care (01) ==
LOC: 2W 09:10 → ED 09:10 → 2W 15:48